=== PATIENT | male | born 1945 | race Caucasian/White ===

== ENCOUNTER → 2023-12-07 11:37 | Outpatient (REF) | payer MEDICARE, OTHER, SELFPAY | LOC: HWRAD 11:37 | PROVIDERS: ATTENDING PHYSICIAN Nurse Practitioner Family | DX: J40 Bronchitis, not specified as acute or chronic (principal) | CPT/HCPCS: 71046 ==

== ENCOUNTER 2023-12-09 06:30 | Day surgery (SDC) | payer MEDICARE, OTHER, SELFPAY ==
[2023-12-09] VITALS (15 sets, daily range): BP systolic 119–163; BP diastolic 66–95; BMI 33.6
[2023-12-09] MEDS: NSS 356 ML IV (07:00)
[2023-12-09 07:12] LABS: Glucose - Point of Care 101 mg/dl (70-99)
[2023-12-09 07:26] LABS: Hematocrit 43.2 % (39.0-52.0); Hemoglobin 14.9 g/dL (13.0-18.0); Mean Corp Hgb Conc. 34.5 g/dL (33.0-37.0); Mean Corpuscular Volume 95.8 fL (80.0-94.0); Platelet Count 176 10^3/uL (130-400); Red Blood Cell Count 4.51 10^6/uL (4.70-6.10); Red Cell Dist. Width 12.9 % (11.5-14.5); White Blood Cell Count 5.3 10^3/uL (4.8-10.8)
[2023-12-09 07:30] LABS: INR 1.18; PT 15.1 Sec (11.4-14.6)
[2023-12-09 07:31] LABS: APTT 30.4 Sec (23.4-35.0)
[2023-12-09 07:37] LABS: ALT (SGPT) 20 U/L (0-50); AST (SGOT) 26 U/L (17-59); Alkaline Phosphatase 44 U/L (38-126); Blood Urea Nitrogen 20 mg/dl (9-20); Calcium 9.2 mg/dl (8.4-10.2); Carbon Dioxide 23 mmol/L (22-30); Chloride 109 mmol/L (98-107); Estimated Creatinine Clearance 77 ml/min; Glucose 107 mg/dl (70-99); Potassium 4.3 mmol/L (3.5-5.1); Sodium 138 mmol/L (135-145); Total Bilirubin 1.1 mg/dl (0.2-1.3); Total Protein 6.4 g/dl (6.3-8.2); eGFR > 60.00
[2023-12-09] MEDS: LOW STRENGTH ASPIRIN 324 MG PO (07:41)
[2023-12-09 09:57] LABS: Glucose - Point of Care 99 mg/dl (70-99)
[2023-12-09] MEDS: NSS 1000 IV (10:00)
--- NOTE | 2023-12-09 10:24 | PTCARENOTE ---
Dr Mercer at pt bedside speaking to pt and pt's .
--- NOTE | 2023-12-09 12:52 | ITS.CL.CATH ---
[facility] - Catheterization
Cardiac Catheterization
Procedure Report:
LEFT HEART CATHETERIZATION
Date of Procedure: December 09, 2023
Referring: Dr. Leo Oconnor
PROCEDURES:
1. Left heart catheterization with coronary and single-plane left ventriculography
2. Selective FLAVIO angiography. Known occlusion of SVG-OM 2 and SVG-RCA
INDICATION: This is a 78-year-old gentleman with a complex cardiac history dating back to his early 40's when he suffered his first myocardial infarction. He underwent multiple angioplasty and stenting procedures before coronary artery bypass
grafting was performed in 1987 with a HILL-LAD, SVG-OM2, SVG-PDA. Post bypass had stenting of the [place] circumflex. His last catheterization at [facility] in 2018 was notable for 'stable coronary anatomy' when compared to the prior
catheterization report from [facility] from July 2015. At the time of his catheterization at [facility], he was noted to have severe [place] coronary artery disease with a patent HILL-mid LAD. The SVG-OM 2 and SVG-PDA were
both found to be occluded with much of the circumflex and distal RCA noted to fill via left to left collaterals. The patient reports the development of resting chest discomfort over the past several weeks stating he has 'unstable symptoms'.
However, post procedure he also related that his chest pain has actually been much more chronic occurring at fairly low levels of exertion for more than 1 year. He stopped exercising because of chest and leg discomfort. However, he feels his
symptoms have worsened over the past several months. Of note, we were able to transfer images from [facility] [address] via [facility]. These images were not available until after the catheterization procedure was completed
ACCESS: Left common femoral artery, 6 Malay sheath
HEMODYNAMICS : (mmHg)
AO (s/d) : 138/70, 96
LV (s/d) : 162/17
LVEDP : 23
CORONARY ANGIOGRAPHY
Dominance: Right
LEFT MAIN: Minor ostial narrowing with no pressure dampening upon engagement of a 6 Malay diagnostic catheter
LEFT ANTERIOR DESCENDING: The LAD arises normally from the left main. There is a 50-60% stenosis in the proximal LAD before the origin of a large first diagonal branch. The first diagonal branch is a large caliber vessel that has minor
irregularities. The mid LAD beyond the first diagonal branch has rather diffuse atherosclerotic disease before the origin of a small second diagonal branch. The ostium of the second diagonal branch appears slightly more hazy but the vessel appears
to be 1-1.5 mm in caliber. The HILL graft to the mid LAD remains widely patent with antegrade and retrograde filling of the LAD
CIRCUMFLEX: The stent in the proximal circumflex is patent with only minor in-stent restenosis. The first obtuse marginal branch is very small. The second obtuse marginal branch is totally occluded with the distal vessel noted to fill via faint
left to left collaterals. The circumflex continues in the AV groove supplying a posterolateral branch as well as collaterals to the distal RCA
RIGHT CORONARY ARTERY: 100% occluded proximally with the distal vessel filling via [id number] collaterals
GRAFT ANGIOGRAPHY:
1. HILL-mid LAD: Widely patent with antegrade and retrograde filling of the LAD. The mid LAD beyond the HILL touchdown has diffuse luminal irregularities but no focal obstructive stenosis
LEFT VENTRICULOGRAPHY: Left ventriculography is performed in MCGILL projection. The digital single-plane left ventricular ejection fraction is visually estimated at 40-45% with posterobasal and diaphragmatic inferior akinesis and anterolateral
hypokinesis
RADIATION SUMMARY: Fluoro Time (min): 7.7, Dose (mGy): 760, DAP (Gy.cm2) : 62.9
Closure Device: 6 Malay Angio-Seal LFA
CONCLUSION
1. Patent HILL-LAD with severe [place] vessel coronary artery disease as described above
2. Mildly reduced left ventricular systolic function estimated 40-45% with posterior basal and diaphragmatic inferior akinesis and anterolateral hypokinesis
RECOMMENDATIONS
1. Will need to push antianginals as blood pressure tolerates. Would recommend increasing carvedilol from 12.5 mg to 25 mg p.o. twice daily and add amlodipine 2.5 mg daily. Isosorbide mononitrate 20 mg p.o. twice daily rather than 40 mg once
daily. Continue Ranexa. He had been utilizing nitroglycerin patches from a prior prescription. I recommended discontinuation of supplemental nitroglycerin aside from as ordered. Consider changing to a nitro patch if that works better, however, I
would not mix oral and transdermal therapy.
2. CD copies of the [facility] angiogram from 2019 and the images obtained today were given to the patient before departure from the catheterization laboratory. He was instructed to give it to his computer systems security administrator in [place] so they can add it to
their cardiovascular database
Copy to: Dr. Arun Oconnor, Dr. Oleksandr Potter and Dr. Dennis Squires : [facility] [address] [place] [address], [address] [address] ( / )
== END 2023-12-09 12:35 | disposition home or self-care (01) ==
LOC: CATH 06:30
PROVIDERS: ATTENDING PHYSICIAN Internal Medicine Interventional Cardiology; FAMILY PHYSICIAN Nurse Practitioner Family; OTHER PHYSICIAN Internal Medicine Cardiovascular Disease
DX: I25.10 Atherosclerotic heart disease of native coronary artery without angina pectoris (principal); I25.2 Old myocardial infarction; Z95.1 Presence of aortocoronary bypass graft; Z95.5 Presence of coronary angioplasty implant and graft; I48.91 Unspecified atrial fibrillation; I10 Essential (primary) hypertension; E11.9 Type 2 diabetes mellitus without complications; Z79.01 Long term (current) use of anticoagulants; Z79.4 Long term (current) use of insulin; Z79.82 Long term (current) use of aspirin
CPT/HCPCS: 80053; 82962; 85027; 85610; 85730; 86850; 86900; 86901; 93459; Q9967

== ENCOUNTER → 2023-12-27 10:16 | Outpatient (REF) | payer MEDICARE, OTHER, SELFPAY | LOC: HWRAD 10:16 | PROVIDERS: ATTENDING PHYSICIAN Internal Medicine Cardiovascular Disease; FAMILY PHYSICIAN Nurse Practitioner Family | DX: I11.0 Hypertensive heart disease with heart failure (principal) | CPT/HCPCS: 76700 ==

== ENCOUNTER → 2024-01-26 13:59 | Outpatient (REF) | payer MEDICARE, OTHER, SELFPAY | LOC: RAD 13:59 | PROVIDERS: ATTENDING PHYSICIAN Internal Medicine Cardiovascular Disease; FAMILY PHYSICIAN Nurse Practitioner Family | DX: I11.0 Hypertensive heart disease with heart failure (principal); I73.9 Peripheral vascular disease, unspecified | CPT/HCPCS: 93922; 93925 ==

== ENCOUNTER → 2024-02-13 07:13 | Outpatient (REF) | payer MEDICARE, OTHER, SELFPAY | LOC: EMG 07:13 | PROVIDERS: ATTENDING PHYSICIAN Nurse Practitioner Adult Health; FAMILY PHYSICIAN Nurse Practitioner Family | DX: G62.9 Polyneuropathy, unspecified (principal); R20.2 Paresthesia of skin | CPT/HCPCS: 95886; 95911 ==

== ENCOUNTER → 2024-08-28 12:08 | Outpatient (REF) | payer MEDICARE, OTHER, SELFPAY ==
[2024-08-29 10:22] LABS: Glycohemoglobin (HgbA1c) 5.7 % (4.0-5.6)
== END ==
LOC: HWLAB 12:08
PROVIDERS: ATTENDING PHYSICIAN Nurse Practitioner Family
DX: E11.9 Type 2 diabetes mellitus without complications (principal)
CPT/HCPCS: 36415; 83036

== ENCOUNTER → 2025-02-01 14:42 | Outpatient (REF) | payer MEDICARE, BC, SELFPAY | LOC: HWRAD 14:42 | PROVIDERS: ATTENDING PHYSICIAN Nurse Practitioner Family | DX: R10.30 Lower abdominal pain, unspecified (principal); M54.50 Low back pain, unspecified | CPT/HCPCS: 72110; 72190 ==